=== PATIENT | female | born 1995 | race Caucasian/White ===

== ENCOUNTER → 2018-05-27 | Outpatient (CLI) | payer BC ==
[2018-06-02 13:37] LABS: Acetylchol Recept Bind Ab 0.53 nmol/L
== END | disposition home or self-care (01) ==
LOC: LABWHC1 05-23 11:37
PROVIDERS: ATTEND Psychiatry & Neurology Neurology
DX: R53.83 Other fatigue (principal); R06.09 Other forms of dyspnea
CPT/HCPCS: 36415; 83519; 83605; 84210; 86255

== ENCOUNTER → 2018-07-13 | Outpatient (CLI) | payer BC | END | disposition home or self-care (01) | LOC: LABWHC1 10:08 | PROVIDERS: ATTEND Psychiatry & Neurology Neurology | DX: G70.00 Myasthenia gravis without (acute) exacerbation (principal); M62.89 Other specified disorders of muscle; R06.09 Other forms of dyspnea | CPT/HCPCS: 36415; 83519 ==

== ENCOUNTER 2022-07-15 05:34 | Outpatient (CLI) | payer BC ==
[2022-07-15] MEDS ORDERED: ONDANSETRON 4 MG/2 ML VIAL IVP STA (06:05)
[2022-07-15] MEDS: LACTATED RINGERS 1,000 ML IV SCH ×3 (06:30→08:37)
[2022-07-15 06:42] LABS: Basophils % (A) 0 %; Eosinophils # (A) 0.1 k/uL (0-0.7); Eosinophils % (A) 1 %; HCT 35.3 % (34.0-46.0); HGB 11.9 gm/dL (11.4-16.0); Hypochromasia Slight; Lymphocytes # (A) 0.6 k/uL (1.0-4.8); Lymphocytes % (A) 5 %; MCH 31.6 pg (25.0-35.0); MCHC 33.7 g/dL (31.0-37.0); MCV 93.8 fL (80.0-100.0); Mean Platelet Volume 10.5; Monocytes # (A) 0.4 k/uL (0-1.0); Monocytes % (A) 4 %; Neutrophils # (A) 9.8 k/uL (1.3-7.7); Neutrophils % (A) 89 %; Platelet Count 188 k/uL (150-450); RBC 3.77 m/uL (3.80-5.40); RDW 14.3 % (11.5-15.5)
[2022-07-15 07:23] LABS: African American GFR (CKD) >90 (>60 ml/min/1.73 sqM); Anion Gap 10 mmol/L; Blood Urea Nitrogen 5 mg/dL (7-17); Calcium 8.6 mg/dL (8.4-10.2); Carbon Dioxide 17 mmol/L (22-30); Chloride 109 mmol/L (98-107); Glucose 93 mg/dL (74-99); Non-African American GFR(CKD) >90 (>60 ml/min/1.73 sqM); Sodium 136 mmol/L (137-145)
[2022-07-15 07:36] LABS: Potassium 4.8 mmol/L (3.5-5.1)
[2022-07-15 07:55] LABS: Appearance,Urine Cloudy (Clear); Bacteria,Urine Occasional /hpf; Bilirubin,Urine Negative (Negative); Blood,Urine Negative (Negative); Color,Urine Yellow; Glucose,Urine (UA) Negative (Negative); Ketones,Urine 3+ (Negative); Leukocyte Esterase,Urine Small (Negative); Mucus,Urine Many /hpf; Nitrite,Urine Negative (Negative); PH, Urine 6.5 (5.0-8.0); Protein,Urine 1+ (Negative); RBC,Urine 1 /hpf (0-5); Specific Gravity,Urine 1.026 (1.001-1.035); Squamous Epithelial Cell,Urine 24 /hpf (0-4); Urobilinogen,Urine <2.0 mg/dL (<2.0); WBC,Urine 3 /hpf (0-5)
[2022-07-15 09:31] VITALS: BP 116/60; PULSE 125; RESP 16; TEMP 97.4
--- NOTE | 2022-07-24 19:42 | P.MSEPDOC ---
Presenting Problems - Arrival Data Date of Arrival on Unit: 07/15/22 Time of Arrival on Unit: 05:34 Mode of Transport: Ambulatory - Complaint OB-Reason for Admission/Chief Complaint: Acute Nausea/Vomiting Medical History - Information : 2 Para: 1 Term: 1 : 0 Abortions: Spontaneous or Elective: 0 Number of Living Children: 1 - Gestational Age Gestational Age by SHER (wks/days): 36 Weeks and 4 Days Review of Systems - Review of Systems Constitutional: No problems Breast: No problems ENT: No problems Cardiovascular: No problems Respiratory: No problems Gastrointestinal: No problems Genitourinary: No problems Musculoskeletal: No problems Neurological: No problems Skin: No problems Vital Signs - Temperature Temperature: 97.4 F Temperature Source: Temporal Artery Scan - Pulse Right Sitting Pulse Rate: 125 Pulse Assessment Method: Automatic Cuff - Respirations Respiratory Rate: 16 Oxygen Delivery Method: Room Air O2 Sat by Pulse Oximetry: 98 - Blood Pressure Right Arm Blood Pressure: 116/60 Blood Pressure Mean: 78 Blood Pressure Source: Automatic Cuff Medical Screen Scoring - Cervical Exam Dilation (cm): 1 Membranes: Intact - Uterine Contractions Frequency From (mins): 2 Frequency To (mins): 5 Duration From (seconds): 60 Duration To (seconds): 70 Intensity: Mild Resting: Soft to palpation - Assessment - Baby A Baseline FHR: 135 Heart Rate - NICHD Category: Category I (Normal) NST: Reactive Physician Notification - Physician Notified Physician Notified Date: 07/15/22 Physician Notified Time: 08:57 Physician: Kiki Rae New Order Received: Yes (D/c home) Maternal Triage Index - Non-Urgent/Priority 4 Non-Urgent Priority 4: Yes Criteria Met for Priority 4: nausea and vomiting since 0300 this am, reactive nst, painless contractions, vag exam 1cm/thick Disposition - Disposition OB Disposition: Discharge to home, Written follow up instructions reviewed Discharge Date: 07/15/22 Discharge Time: 09:23 I agree with the RN Medical Screening Exam: No Physician's MSE Comment: Incomplete documentation, missing plan of care Case reviewed; plan agreed upon as documented in EMR&OBIX.: No Diagnosis: VOMITING OF , UNSPECIFIED
== END 2022-07-15 09:23 | disposition home or self-care (01) ==
LOC: MERGE 05:34 → FBPOP 05:34
PROVIDERS: ATTEND Obstetrics & Gynecology Obstetrics
DX: O21.9 Vomiting of pregnancy, unspecified (principal); Z3A.36 36 weeks gestation of pregnancy
CPT/HCPCS: 59025; 99214; 96361; 96374; 36415; 80048; 85025; 81001; 87502; 87635; J2405

== ENCOUNTER 2022-08-06 05:49 | Inpatient (IN) | payer BC ==
[2022-08-06] MEDS ORDERED: TERBUTALINE 1 MG/ML VIAL SQ PRN (06:01)
[2022-08-06] MEDS ORDERED: LIDOCAINE 0.5% (PF) 5 MG/ML (50 ML SDV) SQ PRN (06:01)
[2022-08-06] MEDS: LACTATED RINGERS 1,000 ML IV SCH ×3 (06:10→14:27)
[2022-08-06] MEDS ORDERED: OXYTOCIN 30 UNITS/500 ML NS 30 UNIT in SALINE 1 500ML.BAG IV SCH (06:15)
[2022-08-06 06:33] LABS: Basophils % (A) 0 %; Eosinophils % (A) 1 %; HCT 32.5 % (34.0-46.0); HGB 10.8 gm/dL (11.4-16.0); Hypochromasia Slight; Lymphocytes # (A) 1.2 k/uL (1.0-4.8); Lymphocytes % (A) 22 %; MCH 30.6 pg (25.0-35.0); MCHC 33.1 g/dL (31.0-37.0); MCV 92.7 fL (80.0-100.0); Mean Platelet Volume 11.1; Monocytes # (A) 0.3 k/uL (0-1.0); Monocytes % (A) 5 %; Neutrophils # (A) 3.7 k/uL (1.3-7.7); Neutrophils % (A) 70 %; Platelet Count 155 k/uL (150-450); RBC 3.51 m/uL (3.80-5.40); RDW 14.5 % (11.5-15.5); WBC 5.4 k/uL (3.8-10.6)
[2022-08-06] MEDS ORDERED: fentaNYL (PF) 50 MCG/ML 5 ML AMP ONE (09:20)
[2022-08-06] MEDS ORDERED: BUPIVACAINE (PF) 0.25% 30 ML VIAL ONE (09:20)
[2022-08-06] MEDS ORDERED: SODIUM CHLORIDE 0.9% 100 ML BAG ONE (09:20)
--- NOTE | 2022-08-06 10:28 | P.HPOB ---
History of Present Illness H&P Date: 08/06/22 Chief Complaint: IUP @ 39 5/7 weeks This is a 26-year-old at 39-5/7 weeks that presented to labor and delivery for elective induction of labor. Patient has been receiving routine care with myself and has been essentially uncomplicated. On bloodwork this patient's blood type of O+, rubella status immune, hepatitis B surface antigen negative, HIV negative, RPR is nonreactive, group beta strep culture negative. Patient does note good movement today, she notes an occasional contraction denies vaginal bleeding or loss of fluid. 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 Past Anesthesia/Blood Transfusion Reactions: No Reported Reaction Past Psychological History: No Psychological Hx Reported Smoking Status: Never smoker Past Drug Use History: None Reported - Past Family History Father Family Medical History: Diabetes Mellitus Additional Family Medical History / Comment(s): skin CA Mother Additional Family Medical History / Comment(s): abnormal heart rythm Medications and Allergies Home Medications Medication Instructions Recorded Confirmed Type Pnv No.95/Ferrous Fum/Folic AC 1 tab PO DAILY 06/22/21 08/06/22 History [ Multivitamin Tablet] Allergies Allergy/AdvReac Type Severity Reaction Status Date / Time No Known Allergies Allergy Verified 08/06/22 05:57 Exam Osteopathic Statement: *. No significant issues noted on an osteopathic structural exam other than those noted in the History and Physical/Consult. Vital Signs Temp Pulse Resp BP Pulse Ox 08/06/22 05:57 96.7 F L 74 18 125/66 99 Intake and Output 08/05/22 08/06/22 08/06/22 22:59 06:59 14:59 Other: # Voids 1 Weight 83.007 kg Targeted physical exam is performed in this date and want ad receiver a well-nourished well-developed female in no acute distress, breathing is nonlabored, heart has a regular rate and rhythm, abdomen is gravid and appropriate for gestational age, on cervical exam she is 4/70/-2 station amniotomy is performed and copious clear fluid is obtained. heart tones noted to be category 1 and she is shelia every 3 minutes. Results Result Diagrams: 08/06/22 06:10 Abnormal Lab Results - Last 24 Hours (Table) 08/06/22 Range/Units 06:10 RBC 3.51 L (3.80-5.40) m/uL Hgb 10.8 L (11.4-16.0) gm/dL Hct 32.5 L (34.0-46.0) % Assessment and Plan (1) Term Current Visit: Yes Status: Acute Code(s): Z34.90 - ENCNTR FOR SUPRVSN OF NORMAL , UNSP, UNSP TRIMESTER SNOMED Code(s): 39481609 Plan: 26-year-old at 39-5/7 weeks presents for elective induction of labor. Pitocin induction of labor is begun per hospital protocol. Options for analgesia are discussed including epidural, nitrous, Stadol. Patient will consider. Anticipate spontaneous vaginal delivery later today.
[2022-08-06] MEDS ORDERED: LANOLIN CREAM 5 GM TUBE TOPICAL PRN (10:29)
[2022-08-06] MEDS ORDERED: SIMETHICONE 80 MG CHEWABLE PO PRN (10:29)
[2022-08-06] MEDS ORDERED: diphenhydrAMINE 50 MG/ML 1 ML VIAL IVP PRN ×2 (10:29)
[2022-08-06] MEDS ORDERED: ZOLPIDEM 5 MG TAB PO PRN (10:29)
[2022-08-06] MEDS ORDERED: HYDROCORTISONE 2.5% RECTAL CREAM 30 GM TUBE RECTAL PRN (10:29)
[2022-08-06] MEDS ORDERED: diphenhydrAMINE 50 MG CAP PO PRN (10:29)
[2022-08-06] MEDS ORDERED: BENZOCAINE/MENTHOL SPRAY 1 GM/SPRAY AEROSOL TOPICAL PRN (10:29)
[2022-08-06] MEDS ORDERED: diphenhydrAMINE 25 MG CAP PO PRN (10:29)
--- NOTE | 2022-08-06 10:29 | P.PROBDLV ---
Vaginal Delivery Note - . Vaginal Delivery Note: 26-year-old at 39-5/7 weeks presents for elective induction of labor. Patient was admitted and Pitocin induction of labor was begun. Amniotomy was performed and clear fluid was obtained. Patient progressed through labor eventually becoming uncomfortable and requesting epidural placement. Epidural was placed without difficulty by the anesthesia department. Patient quickly progressed to complete began pushing and had a normal spontaneous vaginal delivery of a viable male at 1011, weight of 9 lbs. 1 oz., Apgars of 9 and 9 at one and 5 minutes respectively. After two-minute delayed the umbilical cord was doubly clamped and cut. Spontaneous cry was noted at . The placenta was delivered spontaneously intact with a three-vessel cord being noted. On inspection the patient's vaginal vault a first-degree vaginal laceration was appreciated. This was instilled with lidocaine and repaired in usual fashion with 3-0 Rapide. Hemostasis was appreciated afterwards. A periurethral laceration was appreciated hemostatic and not repaired. Uterus is noted be firm and below the umbilicus. Estimated blood loss 150 mL, patient and tolerated delivery well and are resting comfortably.
[2022-08-07] MEDS: SENNOSIDES-DOCUSATE SODIUM 1 EACH TAB PO SCH ×2 (08:00→13:24)
[2022-08-07 08:35] LABS: Basophils % (A) 0 %; Eosinophils % (A) 0 %; HCT 30.1 % (34.0-46.0); Hypochromasia Slight; Lymphocytes % (A) 16 %; MCH 30.7 pg (25.0-35.0); MCHC 33.3 g/dL (31.0-37.0); MCV 92.2 fL (80.0-100.0); Mean Platelet Volume 11.4; Monocytes # (A) 0.3 k/uL (0-1.0); Monocytes % (A) 4 %; Neutrophils % (A) 77 %; Platelet Count 128 k/uL (150-450); RBC 3.27 m/uL (3.80-5.40); RDW 14.6 % (11.5-15.5); WBC 6.5 k/uL (3.8-10.6)
--- NOTE | 2022-08-07 08:53 | P.DS ---
Providers Date of admission: 08/06/22 05:49 Expected date of discharge: 08/07/22 Attending physician: Kiki Rae Primary care physician: Stated None - Discharge Diagnosis(es) (1) Term Current Visit: Yes Status: Acute (2) Status post normal vaginal delivery Current Visit: Yes Status: Acute (3) Obstetric vaginal laceration with first degree perineal laceration Current Visit: Yes Status: Acute Hospital Course: 26-year-old that presented to labor and delivery at 39-5/7 weeks for elective induction of labor on 08/06. Patient was admitted and Pitocin induction of labor was begun. For full details on this patient please see the dictated history and physical. Patient underwent amniotomy and clear fluid was obtained. Patient did progress through labor eventually becoming uncomfortable and reques ting epidural placement. Epidural was placed without difficulty by the anesthesia department. Patient progressed to complete and had a normal spontaneous vaginal delivery of a viable male at 1011, weight of 9 lbs. 1 oz. Patient did sustain a first-degree vaginal laceration which was repaired in the usual fashion with 3-0 Rapide after instillation of lidocaine. Patient has done well . On this day #1 she is ambulating and voiding without difficulty. She is tolerating a regular diet without nausea or vomiting. She states her pain is well-controlled. She is without concerns and does wish discharge home. Patient Condition at Discharge: Good Plan - Discharge Summary New Discharge Prescriptions: No Action Pnv No.95/Ferrous Fum/Folic AC [ Multivitamin Tablet] 1 tab PO DAILY Discharge Medication List Pnv No.95/Ferrous Fum/Folic AC [ Multivitamin Tablet] 1 tab PO DAILY 06/22/21 [History] Follow up Appointment(s)/Referral(s): Kiki Rae DO [Doctor of Osteopathic Medicine] - 4 Weeks Patient Instructions/Handouts: Vaginal Delivery (DC), Vaginal Delivery (GEN) Activity/Diet/Wound Care/Special Instructions: Patient can expect menstrual-like bleeding postdelivery. This bleeding and last 4-6 weeks. No tub baths or intercourse until 6 weeks . Patient is to call and schedule a routine check. 4 weeks post delivery. [id number] ibuprofen as needed for pain. Discharge Disposition: HOME SELF-CARE
[2022-08-07] MEDS ORDERED: PRENATAL VIT-IRON-FOLIC ACID 1 EACH TABLET PO SCH (09:00)
[2022-08-07 09:07] VITALS: RESP 16
[2022-08-07 12:56] VITALS: BP 122/76; PULSE 83; TEMP 97.9
== END 2022-08-07 14:00 | disposition home or self-care (01) | DRG 807 ==
LOC: 4FBP 05:49 → MERGE 08-08 16:25
PROVIDERS: ADMIT Obstetrics & Gynecology Obstetrics; ATTEND Obstetrics & Gynecology Obstetrics
PROC: 10E0XZZ Delivery of Products of Conception, External Approach (ICD-10-PCS; principal; 2022-08-06)
PROC: 3E033VJ Introduction of Other Hormone into Peripheral Vein, Percutaneous Approach (ICD-10-PCS; 2022-08-06)
PROC: 0HQ9XZZ Repair Perineum Skin, External Approach (ICD-10-PCS; 2022-08-06)
PROC: 10907ZC Drainage of Amniotic Fluid, Therapeutic from Products of Conception, Via Natural or Artificial Opening (ICD-10-PCS; 2022-08-06)
PROC: 3E0R3BZ Introduction of Anesthetic Agent into Spinal Canal, Percutaneous Approach (ICD-10-PCS; 2022-08-06)
DX: O71.82 Other specified trauma to perineum and vulva (principal); Z37.0 Single live birth; O70.0 First degree perineal laceration during delivery; Z3A.39 39 weeks gestation of pregnancy; O80 Encounter for full-term uncomplicated delivery
CPT/HCPCS: 85025; 86850; 86900; 86901

== ENCOUNTER → 2023-01-31 | Outpatient (CLI) | payer BC ==
--- NOTE | 2023-01-31 15:44 | USB ---
Reason for Exam: Clinical finding. Technique: Method: Whole Breast Handheld. Findings: The whole breast of both breasts, the axilla of both breasts and the retroareolar of both breasts were scanned. No solid or cystic masses are identified.. Overall Assessment: Negative, BI-RAD 1 Management: Screening Mammogram of both breasts at age 41. A clinical breast exam by your physician is recommended on an annual basis beginning at age 35 for baseline screening and results should be correlated with findings. This exam should not preclude additional follow-up of suspicious palpable abnormalities. Results were given to the patient verbally at the time of exam. Electronically signed and approved by: Eyal Mendez D.O. Radiologis
== END | disposition home or self-care (01) ==
LOC: RADUSWWP 15:11
PROVIDERS: ATTEND Internal Medicine
DX: N63.10 Unspecified lump in the right breast, unspecified quadrant (principal); N63.20 Unspecified lump in the left breast, unspecified quadrant